=== PATIENT | female | born 1985 | race Caucasian/White ===

== ENCOUNTER 2019-02-07 19:33 | Emergency (ER) | payer OTHER ==
[2019-02-07 19:37] VITALS: BP 140/93; PULSE 88; TEMP 98.3; BMI 23.1
--- NOTE | 2019-02-07 19:37 | PDOC ---
Rapid Medical Evaluation Time Seen by Provider: 02/07/19 19:34 Medical Evaluation: Allergies Allergy/AdvReac Type Severity Reaction Status Date / Time No Known Allergies Allergy Verified 04/01/15 16:25 02/07/19 19:34 I performed a brief in-person evaluation of this patient. Chief complaint: Left flank pain x 3 wks, s/p 2 courses of abx for pyelonephritis with persistent pain. No fevers. Vomiting previously, but resolved. Had outside sonogram but has not received results. Pertinent physical exam findings: Left CVA tenderness, no tenderness anteriorly I have ordered the following: CBC, CMP, UA/culture, CT spiral renal stone protocol Patient will proceed to the ED for further evaluation. Discharge Disposition - Diagnosis Flank pain - Referrals - Patient Instructions - Post Discharge Activity
[2019-02-07 20:02] LABS: BASO % 0.2 % (0-2.0); EOS % 1.1 % (0-4.5); HEMATOCRIT 40.1 % (32.4-45.2); HEMOGLOBIN 13.9 GM/dL (10.7-15.3); MCH 30.4 pg (25.7-33.7); MCHC 34.6 g/dl (32.0-36.0); MEAN CELL VOLUME 87.8 fl (80-96); MEAN PLT VOLUME 9.8 fl (7.5-11.1); MONO % 9.1 % (3.8-10.2); NEUT % 56.6 % (42.8-82.8); PLATELET COUNT 200 K/MM3 (134-434); RBC 4.57 M/mm3 (3.60-5.2); RDW 13.5 % (11.6-15.6); WHITE BLOOD COUNT 8.1 K/mm3 (4.0-10.0)
[2019-02-07 20:09] LABS: URINE APPEARANCE CLEAR; URINE BILIRUBIN NEGATIVE (<2.0 mg/dL); URINE COLOR YELLOW; URINE GLUCOSE (UA) NEGATIVE (NEGATIVE); URINE KETONE NEGATIVE (NEGATIVE); URINE LEUK ESTERASE TRACE (NEGATIVE); URINE NITRITE NEGATIVE (NEGATIVE); URINE PROTEIN NEGATIVE (NEGATIVE); URINE UROBILINOGEN NEGATIVE mg/dL (0.2-1.0)
[2019-02-07] MEDS ORDERED: SODIUM CHLORIDE 1,000 ML IV STA (20:27)
[2019-02-07] MEDS ORDERED: ACETAMINOPHEN 1000 MG/100 ML VIAL (NON FORMULARY) IVPB ONE (20:27)
[2019-02-07 20:35] LABS: EPI CELLS RARE /HPF (FEW); URINE MUCUS RARE
[2019-02-07] MEDS ORDERED: ACETAMINOPHEN INJECTION 100 ML IVPB ONE (20:37)
--- NOTE | 2019-02-07 20:49 | PDOC ---
History of Present Illness - General Chief Complaint: Pain, Acute Stated Complaint: KIDNEY PAIN Time Seen by Provider: 02/07/19 19:34 History Source: Patient Exam Limitations: No Limitations Past History - Past Medical History Allergies/Adverse Reactions: Allergies Allergy/AdvReac Type Severity Reaction Status Date / Time No Known Allergies Allergy Verified 02/07/19 19:37 Home Medications: Ambulatory Orders NK [No Known Home Medication] 02/07/19 Asthma: No Cancer: No Cardiac Disorders: No COPD: No Diabetes: No HTN: No Seizures: No Thyroid Disease: No - Reproductive History Is Patient Now?: No - Suicide/Smoking/Psychosocial Hx Smoking History: Never smoked Hx Alcohol Use: No Drug/Substance Use Hx: No Hx Substance Use Treatment: No *Physical Exam - Vital Signs Last Vital Signs Temp Pulse Resp BP Pulse Ox 98.3 F 88 18 140/93 100 02/07/19 19:34 02/07/19 19:34 02/07/19 19:34 02/07/19 19:34 02/07/19 19:34 - Physical Exam General Appearance: No: Apparent Distress Respiratory/Chest: positive: Lungs Clear, Normal Breath Sounds. negative: Respiratory Distress Cardiovascular: positive: Regular Rhythm, Regular Rate, S1, S2. negative: Murmur Gastrointestinal/Abdominal: positive: Tender (mild TTP along upper abdomen, negative Suarez's sign), Soft. negative: Distended, Guarding, Rebound, Mass Musculoskeletal: positive: CVA Tenderness (mild B/L CVA TTP) Integumentary: positive: Normal Color Neurologic: positive: Alert, Normal Mood/Affect Moderate Sedation - Procedure Monitoring Vital Signs: Procedure Monitoring Vital Signs Temperature 98.3 F 02/07/19 19:34 Pulse Rate 88 02/07/19 19:34 Respiratory Rate 18 02/07/19 19:34 Blood Pressure 140/93 02/07/19 19:34 O2 Sat by Pulse Oximetry (%) 100 02/07/19 19:34 ED Treatment Course - LABORATORY CBC & Chemistry Diagram: 02/07/19 19:51 02/07/19 19:51 - ADDITIONAL ORDERS Additional order review: Laboratory Results 02/07/19 02/07/19 19:38 19:38 Urine Color Yellow Urine Appearance Clear Urine pH 5.0 Ur Specific [place] 1.019 Urine Protein Negative Urine Glucose (UA) Negative Urine Ketones Negative Urine Blood Negative Urine Nitrite Negative Urine Bilirubin Negative Urine Urobilinogen Negative Ur Leukocyte Esterase Trace Urine WBC (Auto) 3 Urine RBC (Auto) None Ur Epithelial Cells Rare Urine Mucus Rare Urine HCG, Qual Negative 02/07/19 19:51 RBC 4.57 MCV 87.8 MCHC 34.6 RDW 13.5 MPV 9.8 D Neutrophils % 56.6 D Lymphocytes % 33.0 D Monocytes % 9.1 Eosinophils % 1.1 D Basophils % 0.2 D Medical Decision Making - Medical Decision Making 34 y/o F with no sig pmh presents with B/L flank pain x 3 weeks. Has seen her PCP twice regarding this who told her she had urine infection; was prescribed antibiotics twice; does not recall name of first antibiotic but second abx was Bactrim, which patient finished 3 days ago. Also had renal ultrasound done 2 days ago, but has not yet received the results. Had dysuria last week, but not having currently. +nausea. Denies fever, sob, cp, vomiting, diarrhea, hematuria , vaginal d/c. Denies prior abdominal surgeries. Consider kidney stones though unlikely with pain for 3 weeks; consider pyelo Plan: Labs, IVF, Tylenol, CT A/P without contrast, reassess 02/07/19 20:44 CT A/P negative for any acute findings Labs unremarkable UA negative for infection Patient pain improved, looks comfortable Consider ?SHEILA raya Advised further f/u with her PCP; given copies of her reports 02/07/19 22:30 *DC/Admit/Observation/Transfer Diagnosis at time of Disposition: Flank pain - Discharge Dispostion Disposition: HOME Condition at time of disposition: Stable Decision to Admit order: No - Referrals - Patient Instructions Printed Discharge Instructions: DI for Flank Pain Additional Instructions: Thank you for choosing [facility]. It was a pleasure taking care of you. Your lab work was unremarkable You do not have urine infection Your CT scan showed no findings either Your pain could possibly be musculoskeletal in origin Recommend follow-up with your PCP in 2-3 days for further evaluation Return to the Emergency Department if your symptoms worsen or persist or have other concerning symptoms. - Post Discharge Activity
[2019-02-07 20:55] LABS: ALBUMIN 4.1 g/dl (3.4-5.0); ALK PHOS 96 U/L (45-117); ANION GAP 7 MMOL/L (8-16); BLOOD UREA NITROGEN 13 mg/dL (7-18); CALCIUM 8.7 mg/dL (8.5-10.1); CHLORIDE 104 mmol/L (98-107); CO2 29 mmol/L (21-32); CREATININE 0.7 mg/dL (0.55-1.3); GLUCOSE,RANDOM 71 mg/dL (74-106); POTASSIUM 3.7 mmol/L (3.5-5.1); SGOT/AST 18 U/L (15-37); SGPT/ALT 20 U/L (13-61); SODIUM 140 mmol/L (136-145); TOT PROT 7.1 g/dl (6.4-8.2)
== END 2019-02-07 22:38 | disposition home or self-care (01) ==
LOC: JER 19:33
PROC: 3E033NZ Introduction of Analgesics, Hypnotics, Sedatives into Peripheral Vein, Percutaneous Approach (ICD-10-PCS; principal; 2019-02-07)
DX: R10.9 Unspecified abdominal pain (principal); Z87.440 Personal history of urinary (tract) infections
CPT/HCPCS: 36415; 74176-TC; 80053; 81003; 81015; 84703; 85025; 87086; 99283-25; J0131; J7030